=== PATIENT | male | born 1960 | race Hispanic/Latino ===

== ENCOUNTER 2018-07-15 07:41 | Day surgery (SDC) | payer BC ==
[2018-06-02 10:48] VITALS: BMI 25.8
[2018-07-15] MEDS ORDERED: Propofol 10 mg/ml Inj (20 ML) ONE ×3 (10:01→10:21)
[2018-07-15 10:49] VITALS: TEMP 97.4; O2SAT 99
[2018-07-15 11:37] VITALS: BP 142/88; PULSE 65; RESP 20
== END 2018-07-15 11:30 | disposition home or self-care (01) ==
LOC: C.ENDO 07:41
PROVIDERS: ATTEND Internal Medicine Gastroenterology
DX: Z12.11 Encounter for screening for malignant neoplasm of colon (principal); D12.5 Benign neoplasm of sigmoid colon; K64.8 Other hemorrhoids
CPT/HCPCS: 45385; 88305; J2704